=== PATIENT | male | born 1970 | race Two or more races ===

== ENCOUNTER 2019-08-09 01:13 | Emergency (ER) | payer SELFPAY ==
[~2019-08-09] VITALS: Ht 165.1 cm; Wt 81.6 kg
[2019-08-09 01:45] VITALS: BP 168/93
--- NOTE | 2019-08-09 01:45 | NUR ---
ED Nurse Note: Patient walked in to ER c/o flu like symptoms. AAO x4, VSS at this time.
[2019-08-09] MEDS ORDERED: Ketorolac 30mg Inj IM ONE (02:00)
[2019-08-09] MEDS ORDERED: Acetaminophen 500mg (ES) tab ORAL ONE ×2 (02:00→02:11)
[2019-08-09] MEDS ORDERED: NAPROXEN250 MG ORAL (02:01)
--- NOTE | 2019-08-09 02:02 | Emergency Room Report ---
History of Present Illness General Chief Complaint: Upper Respiratory Illness Source: Patient Present Illness HPI 48-year-old male presents with cough, sore throat x1 day aching nature no aggravating factor severity is mild, intermittent, patient presents for evaluation. He also endorses some shortness of breath when he swallows because of the pain Allergies: Coded Allergies: No Known Allergies (Unverified , 08/09/19) Patient History Past Medical History: see triage record Reviewed Nursing Documentation: PMH: Agreed; PSxH: Agreed Nursing Documentation-PMH Past Medical History: No Stated History Review of Systems All Other Systems: negative except mentioned in HPI Physical Exam Vital Signs Date Time Temp Pulse Resp B/P (MAP) Pulse Ox O2 Delivery O2 Flow Rate FiO2 08/09/19 01:30 98.1 75 26 168/93 (118) 97 Room Air Sp02 EP Interpretation: reviewed, normal General Appearance: well appearing, no apparent distress, alert Head: normocephalic, atraumatic Eyes: bilateral eye PERRL, bilateral eye EOMI ENT: uvula midline, moist mucus membranes Neck: supple, thyroid normal, supple/symm/no masses Respiratory: lungs clear, no respiratory distress, no retraction, no accessory muscle use Cardiovascular #1: normal peripheral pulses, regular rate, rhythm, no edema, no gallop, no murmur Gastrointestinal: non tender, soft, no guarding, no rebound Musculoskeletal: normal inspection Neurologic: alert, oriented x3 Psychiatric: mood/affect normal Skin: no rash, warm/dry Medical Decision Making Diagnostic Impression: Primary Impression: Upper respiratory infection Qualified Codes: J06.9 - Acute upper respiratory infection, unspecified Additional Impression: Pharyngitis Qualified Codes: J02.9 - Acute pharyngitis, unspecified ER Course 48-year-old male presents with cough, congestion, sore throat differential diagnosis includes upper respiratory action, pharyngitis, viral syndrome We will provide Decadron, Toradol, Tylenol Disposition home with return precautions supportive care Last Vital Signs Date Time Temp Pulse Resp B/P (MAP) Pulse Ox O2 Delivery O2 Flow Rate FiO2 08/09/19 01:45 75 26 Room Air 08/09/19 01:45 98.1 168/93 97 Disposition: HOME, SELF-CARE Condition: Stable Scripts Naproxen* (NAPROSYN*) 250 Mg Tablet 250 MG ORAL TID PRN for For Pain, #20 TAB 0 Refills Prov: Mg Mireles MD 08/09/19 Referrals: [facility] Fran Ramos. [facility] Patient Instructions: Pharyngitis, [id number], Upper Respiratory Infection, Adult Additional Instructions: The patient was provided with discharge instructions, notified to follow-up with a primary care doctor and or specialist in the next 24-48 hours, and to return to the ED if they have worsening of their symptoms. Please note that this report is being documented using [employer] technology. This can lead to erroneous entry secondary to incorrect interpretation by the dictating instrument. Mg Mireles MD Aug 09, 2019 02:02
--- NOTE | 2019-08-09 02:21 | NUR ---
ED Nurse Note: Pt cleared by health care Provider for discharge. DC instructions/prescription was given and explained to pt and verbalized understanding of teachings. All medical deviecs such as ID band removed. Pt is AAO x4, ambulatory and left with all personal belongings.
== END 2019-08-09 02:30 | disposition home or self-care (01) ==
LOC: EMR 02:20
DX: J06.9 Acute upper respiratory infection, unspecified (principal); J02.9 Acute pharyngitis, unspecified
CPT/HCPCS: 96372; 99283; J1885; J8540